=== PATIENT | female | born 1955 | race African-American/Black ===

== ENCOUNTER 2024-09-05 10:57 | Emergency (ER) | payer OTHER, MEDICAID ==
[~2024-09-05] VITALS: Ht 162.6 cm; Wt 89.0 kg
[2024-09-05 11:31] VITALS: BP 159/92; PULSE 61; RESP 18; TEMP 98; O2SAT 100
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
--- NOTE | 2024-09-05 12:09 | DVH ---
EXAM: XY LUMBAR SPINE 3 VIEW HISTORY: FALL COMPARISON: None TECHNIQUE: AP and lateral views of the lumbosacral junction were performed. FINDINGS: No fractures are identified about the lumbar spine. There is thoracolumbar levoscoliosis. There is moderate to severe lumbar degenerative disc disease and facet arthropathy. There is grade 1 anterolis thesis L4 on L5 measuring 3 mm AP. There is fecal retention in the colon, not fully imaged here. IMPRESSION: 1. Degenerative changes of the lumbar spine without evidence of fracture. 2. Fecal retention in the colon suggestive of constipation.
--- NOTE | 2024-09-05 12:16 | DVH ---
CT HEAD WITHOUT CONTRAST INDICATION: FALL COMPARISON: None TECHNIQUE: CT of the head without intravenous contrast. RADIATION DOSE: CTDIvol: 57.59 mGy, DLP: 923.11 mGy*cm FINDINGS: There is no evidence of acute intracranial hemorrhage, extra-axial collection, mass effect, midline s hift, herniation or hydrocephalus. The ventricles, sulci and cisterns are age appropriate. Scattered dural calcification. The rodriguez-white differentiation is intact. Punctate mineralization in the basal ganglia. Minimal white matter hypoattenuation is nonspecific but commonly due to chronic microvascular ischemia. The visualized paranasal sinuses and mastoid air cells are clear. The surrounding soft tissues and osseous structures are unremarkable. Bilateral lens replacements. IMPRESSION: No evidence of acute intracranial abnormalities.
[2024-09-05] MEDS ORDERED: METH-1182 PO (12:35)
[2024-09-05] MEDS ORDERED: ACET-1304 PO (12:35)
[2024-09-05] MEDS: ACETAMINOPHEN 500 MG TAB or CAP PO ONE (12:40)
== END 2024-09-05 12:45 | disposition home or self-care (01) ==
LOC: ER 10:57
DX: S39.012A Strain of muscle, fascia and tendon of lower back, initial encounter (principal); G44.319 Acute post-traumatic headache, not intractable; E66.9 Obesity, unspecified; W19.XXXA Unspecified fall, initial encounter; Y93.89 Activity, other specified; Y92.89 Other specified places as the place of occurrence of the external cause; Y99.8 Other external cause status
CPT/HCPCS: 70450; 72100